=== PATIENT | female | born 1955 | race Caucasian/White ===

== ENCOUNTER → 2018-01-12 | Outpatient (CLI) | payer OTHER ==
[~2018-01-12] MED LIST: ACET-1256 PO; ALPR-411 PO; ASPI81TA28 PO; B-CO1CAP17 PO; BLACK COHOSH PO; CALC500C70 PO; CINN1CAP2 PO; CLR10 PO; CYAN100048 PO; EFF375 PO; GABA-113 PO; GABA-1218 PO; GLC/500 PO; GLIM4TAB2 PO; GLUC10007 PO; HYDROCODONE/APAP PO; HYZ/10015 PO; IRON PO; LEVO25TA PO; TNR50 PO; VENL150T33 PO
--- NOTE | 2018-01-12 16:13 | DIAGNOSTIC IMAGING REPORT ---
CHEST 2 VIEWS ROUTINE CLINICAL HISTORY: PAT preoperative evaluation COMPARISON STUDY: 01/23/2015 FINDINGS: No acute process. Lungs are clear. Prior median sternotomy and valve replacement. IMPRESSION: No acute process. The above report was generated using voice recognition software. It may contain grammatical, syntax or spelling errors. Electronically signed by: Jeremiah Reed M.D. 01/12/2018 4:12 PM Dictated Date/Time: 01/12/2018 4:12 PM
[2018-01-12 16:28] LABS: BASO % 0.6 %; BASO ABS # 0.05 K/uL (0-0.2); EOS % 1.9 %; EOS ABS # 0.17 K/uL (0-0.5); HEMOGLOBIN 14.9 g/dL (12.0-16.0); IG# 0.02 K/uL (0.00-0.02); LYMPH ABS # 4.32 K/uL (1.2-3.4); MEAN CELL VOLUME 96.1 fL (80-100); MEAN CORPUSCULAR HEMOGLOBIN 32.5 pg (25-34); MEAN CORPUSCULAR HGB CONC 33.9 g/dl (32-36); MONO % 5.7 %; NEUT % 42.6 %; NEUT ABS # 3.75 K/uL (1.4-6.5); PLATELET COUNT 207 K/uL (130-400); RED CELL DISTRIBUTION WIDTH CV 13.1 % (11.5-14.5); RED CELL DISTRIBUTION WIDTH SD 46.2 fL (36.4-46.3); WHITE BLOOD COUNT 8.81 K/uL (4.8-10.8)
[2018-01-12 16:37] LABS: ALBUMIN 3.6 gm/dl (3.4-5.0); BLOOD UREA NITROGEN 24 mg/dl (7-18); CALCIUM 9.7 mg/dl (8.5-10.1); CARBON DIOXIDE 31 mmol/L (21-32); CREATININE 1.42 mg/dl (0.60-1.20); GLUCOSE 159 mg/dl (70-99); POTASSIUM 3.9 mmol/L (3.5-5.1); SODIUM 140 mmol/L (136-145)
[2018-01-12 16:39] LABS: PTT PATIENT 25.3 SECONDS (21.0-31.0)
[2018-01-13 06:36] LABS: HEMOGLOBIN A1C 7.6 % (4.5-5.6)
--- NOTE | 2018-01-14 13:46 | History and Physical ---
History & Physical Date Jan 14, 2018. Chief Complaint Right Shoulder Pain History of Present Illness The patient is a 62 year old female with complaints of chronic right shoulder pain. She had previous rotator cuff repair sometime ago. She underwent right shoulder arthroscopic subacromial decompression and distal clavicle excision by Dr. Hogan in April. She was found to have an irreparable rotator cuff tear. She did not get good relief of her symptoms from the surgery. She has failed conservative therapy including cortisone injections and physical therapy. X-rays show evidence chronic rotator cuff tear and rotator cuff arthropathy. She would like to proceed with right reverse total shoulder arthroplasty. Surgery is scheduled for 01/30/2018 at [facility]. Review of System: Patient denies headaches, sweats, fevers, dizziness, blurred vision, double vision, cough, sore throat, chest pain, sob, n/v/d/c, urinary symptoms, suicidal thoughts, fatigue. ROS is positive for numbness and tingling in her hands and feet, as well as shoulder pain and stiffness. Past Medical/Surgical History Medical Problems: -Carpal tunnel syndrome of right wrist -DM (diabetes mellitus) -HLD (hyperlipidemia) -HTN (hypertension) -Hx of breast cancer requiring chemotherapy and radiation. Unable to have BP cuff on her right side. -Hypothyroidism -Obesity -Osteoarthritis -Anxiety -Aortic insufficiency Surgical History: -Aortic valve replacement -Shoulder arthroscopy -Hysterectomy -Cardiac cath -LASIK -Total Knee Arthroplasty x 2 -Tonsillectomy -Breast lumpectomy Family History: -non contributory Social History: -Patient drinks alcohol occasionally. She denies drug or tobacco use. She lives in a 1 story home with her and has help at home. Additional History Hepatic Disease: No Endocrine Disorder: Yes Hypertension: Yes Heart Disease: No Bleeding Tendencies: No Infectious Diseases: No Allergies Coded Allergies: Adhesives (Verified Allergy, Mild, rash with bandaids, 01/05/18) NO KNOWN DRUG ALLERGIES (Verified Allergy, Unknown, NONE, 01/05/18) Home Medications Scheduled Acetaminophen (Tylenol), 1,000 MG PO BID Alprazolam (Xanax), 1 MG PO HS Aspirin (Aspirin Ec), 81 MG PO QAM Atenolol (Atenolol), 50 MG PO QAM Calcium/Vitamin D (Os-Nicholas 500 Plus D), 1 TAB PO QAM Cinnamon (Cinnamon), 2,000 MG PO QAM Cyanocobalamin (Vitamin B-12), 2,000 MCG PO QAM Gabapentin (Neurontin), 600 MG PO QAM Gabapentin (Neurontin), 300 MG PO HS Glimepiride (Glimepiride), 1 TAB PO QAM Glucosamine Sulfate (Glucosamine), 1,000 MG PO HS Glucosamine Sulfate (Glucosamine), 2,000 MG PO QAM Hctz/Losartan (Hyzaar 25MG/100MG), 1 TAB PO QAM Levothyroxine Sodium (Synthroid), 25 MCG PO QAM Metformin Hcl (Glucophage), 500 MG PO BID Venlafaxine HCl (Venlafaxine HCl), 37.5 MG PO QAM Venlafaxine Hcl (Venlafaxine Hcl Er), 150 MG PO QAM Vitamin B Cmplx/Vitc/Folic Ac (Nephrocaps), 1 CAP PO QAM [Black Cohosh], 1 TAB PO QAM [Hydrocodone/Apap], 0.5 TAB PO PRN [Iron], 65 MG PO QAM Scheduled PRN Loratadine (Claritin), 10 MG PO HS PRN for Seasonal Allergies Physical Examination Skin: warm/dry, no rash Eyes: normal inspection, sclerae normal ENT: normal ENT inspection, pharynx normal Head: normocephalic, atraumatic Neck: supple, no adenopathy, trachea midline Respiratory/Chest: lungs clear, normal breath sounds Cardiovascular: regular rate, rhythm, + systolic murmur (2/6) Extremities: normal inspection, + pertinent finding (Right Shoulder-Decreased ROM and strength in all directions, crepitus with ROM.) Neurologic/Psych: no motor/sensory deficits, alert, oriented x 3 Addiitonal Comments: MRI of the right shoulder demonstrates full thickness supraspinatus tear with retraction and muscle atrophy, severe glenohumeral and acromioclavicular osteoarthritis. X-rays of right shoulder demonstrate humeral head elevation, anterior subluxation of humeral head, and arthritic changes to glenohumeral joint. Last Resulted CBC 01/12/18 15:05 Red Blood Count 4.58, Mean Corpuscular Volume 96.1, Mean Corpuscular Hemoglobin 32.5, Mean Corpuscular Hemoglobin Concent 33.9, Mean Platelet Volume 11.0, Neutrophils (%) (Auto) 42.6, Lymphocytes (%) (Auto) 49.0, Monocytes (%) (Auto) 5.7, Eosinophils (%) (Auto) 1.9, Basophils (%) (Auto) 0.6, Neutrophils # (Auto) 3.75, Lymphocytes # (Auto) 4.32, Monocytes # (Auto) 0.50, Eosinophils # (Auto) 0.17, Basophils # (Auto) 0.05 Last Resulted BMP 01/12/18 14:47 Diagnosis Right Shoulder rotator cuff arthropathy and osteoarthritis Plan of Treatment Patient has chronic right shoulder pain and has an irreparable rotator cuff tear. She has failed conservative treatment including cortisone injections and would like to proceed with surgical intervention. Plan will be for right shoulder reverse total shoulder arthroplasty. Risks, benefits, and alternatives to surgery including but not limited to DVT, infection, pain, stiffness, failure to relieve all symptoms, need for revision surgery, damage to blood vessels, damage to nerves, PE, , risks of anesthesia were discussed and patient verbalized understanding. All questions were answered and patient wishes to proceed with surgery. She is scheduled for surgery on 01/30/18 at [facility]. She plans to go home upon discharge and do outpatient PT. She will f/u in the office post operatively.
== END | disposition home or self-care (01) ==
LOC: C.CPL 14:23
PROVIDERS: ATTEND Orthopaedic Surgery
DX: Z01.811 Encounter for preprocedural respiratory examination (principal); Z01.812 Encounter for preprocedural laboratory examination

== ENCOUNTER 2018-01-30 08:15 | Inpatient (IN) | payer OTHER ==
[2018-01-05 08:42] VITALS: BMI 41.0
[2018-01-12 14:58] VITALS: BMI 42.0
--- NOTE | 2018-01-12 15:51 | PAT Medication Instructions ---
Service Date Jan 12, 2018. Current Home Medication List Acetaminophen (Tylenol), 1,000 MG PO BID Alprazolam (Xanax), 1 MG PO HS Aspirin (Aspirin Ec), 81 MG PO QAM Atenolol (Atenolol), 50 MG PO QAM Calcium/Vitamin D (Os-Nicholas 500 Plus D), 1 TAB PO QAM Cinnamon (Cinnamon), 2,000 MG PO QAM Cyanocobalamin (Vitamin B-12), 2,000 MCG PO QAM Gabapentin (Neurontin), 600 MG PO QAM Gabapentin (Neurontin), 300 MG PO HS Glimepiride (Glimepiride), 1 TAB PO QAM Glucosamine Sulfate (Glucosamine), 1,000 MG PO HS Glucosamine Sulfate (Glucosamine), 2,000 MG PO QAM Hctz/Losartan (Hyzaar 25MG/100MG), 1 TAB PO QAM Levothyroxine Sodium (Synthroid), 25 MCG PO QAM Loratadine (Claritin), 10 MG PO HS PRN for Seasonal Allergies Metformin Hcl (Glucophage), 500 MG PO BID Venlafaxine HCl (Venlafaxine HCl), 37.5 MG PO QAM Venlafaxine Hcl (Venlafaxine Hcl Er), 150 MG PO QAM Vitamin B Cmplx/Vitc/Folic Ac (Nephrocaps), 1 CAP PO QAM [Black Cohosh], 1 TAB PO QAM [Hydrocodone/Apap], 0.5 TAB PO PRN [Iron], 65 MG PO QAM Medication Instructions For Your Scheduled Surgery - Hold the following medications 2 weeks prior to surgery: Cinnamon (Cinnamon), 2,000 MG PO QAM Glucosamine Sulfate (Glucosamine), 1,000 MG PO HS Glucosamine Sulfate (Glucosamine), 2,000 MG PO QAM [Black Cohosh], 1 TAB PO QAM - Hold the following medications the morning of surgery: Calcium/Vitamin D (Os-Nicholas 500 Plus D), 1 TAB PO QAM Cyanocobalamin (Vitamin B-12), 2,000 MCG PO QAM Glimepiride (Glimepiride), 1 TAB PO QAM Hctz/Losartan (Hyzaar 25MG/100MG), 1 TAB PO QAM Loratadine (Claritin), 10 MG PO HS PRN for Seasonal Allergies Metformin Hcl (Glucophage), 500 MG PO BID Vitamin B Cmplx/Vitc/Folic Ac (Nephrocaps), 1 CAP PO QAM [Iron], 65 MG PO QAM - Take the following medications the morning of surgery with a sip of water: Acetaminophen (Tylenol), 1,000 MG PO BID (if needed, may be taken up to four hours before surgery) Aspirin (Aspirin Ec), 81 MG PO QAM Atenolol (Atenolol), 50 MG PO QAM Gabapentin (Neurontin), 600 MG PO QAM Levothyroxine Sodium (Synthroid), 25 MCG PO QAM Venlafaxine HCl (Venlafaxine HCl), 37.5 MG PO QAM Venlafaxine Hcl (Venlafaxine Hcl Er), 150 MG PO QAM [Hydrocodone/Apap], 0.5 TAB PO PRN (if needed, may be taken up to four hours before surgery) - Take the following medications as scheduled the night before surgery: Acetaminophen (Tylenol), 1,000 MG PO BID Alprazolam (Xanax), 1 MG PO HS Gabapentin (Neurontin), 300 MG PO HS Loratadine (Claritin), 10 MG PO HS PRN for Seasonal Allergies (if needed) [Hydrocodone/Apap], 0.5 TAB PO PRN (if needed) If you have any questions please call us at [phone] or [phone] or [phone]
[~2018-01-30] VITALS: Ht 172.7 cm; Wt 125.6 kg
[2018-01-30] VITALS (8 sets, daily range): BP systolic 97–142; BP diastolic 55–78; PULSE 60–96; TEMP 36.3–37; O2SAT 92–96; Ht 172.7 cm; Wt 125.6 kg
[~2018-01-30 08:15] MED LIST changes: +ACETAMINOPHEN 500 MG TAB PO SCH; -B-CO1CAP17 PO; +B-COCAP2 PO; +CEFAZOLIN 3000MG IV PUSH 22.5 ML IV SCH; +CeleBREX 200 MG CAP PO SCH; +DEXAMETHASONE 4 MG TAB PO SCH; +FAMOTIDINE 20 MG TAB PO SCH; +GABAPENTIN 600 MG PO SCH; +LACTATED RINGER'S 1000ML 1,000 ML IV SCH; +METOCLOPRAMIDE HCL 10 MG TAB PO SCH; +ROPIVACAINE 5MG/ML 30 ML 150 MG, BUPIVACAINE 0.5% MPF INJ 30 ML, EpINEphrine HCL INJ 0.... INFIL SCH
[2018-01-30] MEDS ORDERED: ONDANSETRON INJ 2 MG/ML 2 ML VIAL ONE (08:59)
[2018-01-30] MEDS ORDERED: FENTANYL CITRATE INJ 50 MCG/1 ML 2 ML VIAL ONE (08:59)
[2018-01-30] MEDS ORDERED: DEXAMETHASONE SOD INJ 4 MG/ML VIAL ONE (08:59)
[2018-01-30] MEDS ORDERED: PROPOFOL IV EMULSION 10 MG/ML 20 ML VIAL ONE (08:59)
[2018-01-30] MEDS ORDERED: MIDAZOLAM HCL 1 MG/ML 2ML VIAL ONE (08:59)
[2018-01-30] MEDS ORDERED: LIDOCAINE HCL 2% 2 ML VIAL (20MG/ML) ONE (08:59)
[2018-01-30] MEDS ORDERED: ROCURONIUM BROMIDE 10 MG/ML 5 ML VIAL ONE (08:59)
--- NOTE | 2018-01-30 09:41 | History & Physical Bridge Note ---
H&P Re-Evaluation Bridge Note: I have examined the patient, reviewed the History & Physical and in the interval since the performance of the History & Physical I have noted the following changes of clinical significance: No changes noted
[2018-01-30] MEDS ORDERED: ROPIVACAINE 0.5% 5 MG/ML 30 ML VIAL ONE (09:48)
[2018-01-30] MEDS ORDERED: POVIDONE-IODINE OP SOLN 30 ML BTL ONE (10:24)
[2018-01-30] MEDS ORDERED: BACITRACIN 50000 UNIT VIAL ONE (10:24)
[2018-01-30] MEDS ORDERED: ORTHO JOINT ANESTHETIC ONE (10:24)
[2018-01-30] MEDS ORDERED: VANCOMYCIN HCL 1000MG/20ML VIAL ONE (10:24)
[2018-01-30] MEDS ORDERED: EpHEDrine SULFATE INJ 50 MG/ML AMP IV PRN (10:45)
[2018-01-30] MEDS ORDERED: HYDROmorphone INJ 1 MG/ML SYR IV PRN (10:45)
[2018-01-30] MEDS ORDERED: FENTANYL CITRATE INJ 50 MCG/1 ML 2 ML VIAL IV PRN (10:45)
[2018-01-30] MEDS ORDERED: ATROPINE SULFATE 0.1 MG/ML 5ML SYR IV PRN (10:45)
[2018-01-30] MEDS ORDERED: ONDANSETRON INJ 2 MG/ML 2 ML VIAL IV PRN ×2 (10:45→13:30)
[2018-01-30] MEDS ORDERED: PHENYLEPHRINE 100MCG/ML 5ML SYR ONE (11:41)
[2018-01-30] MEDS ORDERED: EpHEDrine SULFATE 50MG/5ML SYR ONE (11:41)
[2018-01-30] MEDS ORDERED: EpHEDrine SULFATE INJ 50 MG/ML AMP ONE (11:41)
--- NOTE | 2018-01-30 12:50 | [facility] Operative Report ---
Operative Report Operative Date Jan 30, 2018. Pre-Operative Diagnosis Right shoulder rotator cuff arthropathy and osteoarthritis Post-Operative Diagnosis Same plus tear long head biceps tendon Procedure(s) Performed Right Reverse Total Shoulder Arthroplasty, Right Biceps Tenodesis Surgeon Dr. Lyle Flores Sr Account Executive Surgeon(s) Abel Suazo PA-C Estimated Blood Loss 50mL Findings as above Specimens A. Right humeral head Drains 1 hemovac Anesthesia Type General Regional Complication(s) none Disposition Recovery Room / PACU Indications Patient is a 62-year-old female long-standing right shoulder. She is failed conservative measures including injection anti-inflammatories and physical therapy. At the time of arthroscopy with another of my partners she was found to have a irreparable rotator cuff tear. This was debrided she continued to have pain disability arthritic change in shoulder. She presents for a right reverse total shoulder arthroplasty. Description of Procedure Risks, benefits and alternatives to surgery including, but not limited to, infection DVT, pain, stiffness, need for revision surgery, failure to relieve all symptoms, damage to blood vessels, damage to nerves, risk of anesthesia were discussed with the patient and they wished to proceed. The patient was identified. Laterality was confirmed and marked. The patient received a preoperative antibiotic as well as an interscalene block. They were transferred to the operating room and placed in the supine position and induced into general endotracheal anesthesia per the anesthesia staff. The patient was then safely transferred to a slight beachchair position. The patient was secured in the Tenet positioner. All pressure points were well padded. The shoulder was prepped and draped in the usual sterile manner with ChloraPrep. The arm was secured in the Spider starr. I made a longitudinal incision just lateral to the coracoid, sharply incising through the skin and utilizing Bovie electrocautery to achieve hemostasis. I identified the cephalic vein and mobilized it laterally with the deltoid. I mobilize the pectoralis and mobilize this medially releasing a small portion of the upper border of the pec tendon to improve visualization. I then identified and mobilized the conjoined tendon. I identified the long head of the biceps tendon. The long head of the biceps tendon had significant tendinosis and tearing proximally. I performed an in situ biceps tenodesis with interrupted #2 FiberWire suture. I then released the subscapularis. I pinned into place my humeral head version cutting guide and made my humeral head resection. I then sequentially reamed and sequentially broached. I then placed the trial humeral stem into the shoulder. I placed retractors around the glenoid and then excised the residual biceps tendon stump and glenoid labrum. I elevated the soft tissues and the inferior aspect of the glenoid to improve exposure and released tissues circumferentially. I then positioned and drilled for the central post for the glenoid plate. The glenoid plate was bone grafted with bone taken from the humeral head. I impacted the definitive glenoid plate into position and then placed a total of 4 compression screws that were then locked into position with locking caps. I then placed the glenosphere onto the plate and secured it with a locking screw. I then removed the trial humeral stem and placed the definitive humeral stem. I trialed off of the definitive stem. The definitive components used were [employer] Equinox: Preserve short humeral press-fit stem: 6 Standard glenoid plate Glenosphere: 38 Humeral tray:+ 0 Humeral polyethylene liner: + 0 I thoroughly irrigated the wound. Deep tissues were anesthetized with an orthomix solution. I then locked my definitive humeral tray into position with a torque limiting screw. I then impacted the definitive humeral polyethylene liner into position. I then reduced the shoulder. There was good range of motion and good stability after the reduction. The wound was again thoroughly irrigated and a Betadine soak was performed. A deep drain was placed. The deltopectoral interval was closed with interrupted #1 Ethibond suture. The subcutaneous tissue was closed with interrupted 2-0 Vicryl suture. The skin was closed with sahra. A sterile dressing was applied. A sling was placed. All needle and sponge counts were correct at the end of the procedure. The patient was transferred to the PACU in stable condition without apparent complication. The PA-C was necessary for assistance with procedure for assistance in positioning, prepping, draping, retraction and closure. I attest to the content of the Intraoperative Record and any orders documented therein. Any exceptions are noted below.
[2018-01-30] MEDS ORDERED: GLYCOPYRROLATE INJ 0.2 MG/ML VIAL ONE (12:57)
[2018-01-30] MEDS ORDERED: NEOSTIGMINE METHYLSULFATE 5 MG/5 ML SYR ONE (12:57)
[2018-01-30] MEDS ORDERED: MoRPHine SULFATE 2 MG/ML CARP IV PRN (13:30)
[2018-01-30] MEDS ORDERED: LORATADINE 10 MG TAB PO PRN (13:30)
[2018-01-30] MEDS ORDERED: CEFAZOLIN IV 2,000 MG in DEXTROSE 5% 50ML 50 ML IV SCH (13:30)
[2018-01-30] MEDS ORDERED: BISACODYL 10 MG SUPP PR PRN (13:30)
[2018-01-30] MEDS ORDERED: MAGNESIUM HYDROXIDE SUSP 30 ML UDC PO PRN (13:30)
--- NOTE | 2018-01-30 14:03 | DIAGNOSTIC IMAGING REPORT ---
R SHOULDER MIN 2 VIEWS ROUTINE CLINICAL HISTORY: 62 years-old Female presenting with Post shoulder surgery. TECHNIQUE: Frontal and transscapular Y views of the right shoulder were obtained. COMPARISON: Chest x-ray from 01/12/2018. FINDINGS: There has been interval reverse right total shoulder arthroplasty. No malalignment. No radiographic evidence of periprosthetic fracture. Expected soft tissue emphysema and overlying skin sahra. Widening of the acromioclavicular joint is new from prior, possibly postsurgical. Visualized portion of the right hemithorax demonstrates low lung volumes on the right. IMPRESSION: 1. Widening of the right AC joint. Correlate clinically for expected postsurgical appearance. 2. Otherwise expected postsurgical appearance status post reverse right total shoulder arthroplasty. Electronically signed by: Lyle Nevarez M.D. 01/30/2018 2:01 PM Dictated Date/Time: 01/30/2018 2:00 PM
[2018-01-30] MEDS ORDERED: PHARMACY GLYCEMIC MGMT CONSULT PRN (14:06)
--- NOTE | 2018-01-30 14:28 | Pharmacy Progress Note ---
Pharmacy Glycemic Short Note 2 Date of Service Jan 30, 2018. OUTPATIENT ANTIDIABETIC REGIMEN: * Glimepiride 4mg PO qAM * Metformin 500mg PO BID * HbA1c: 7.6% (01/12/18) ASSESSMENT: * Ms Rondon is a 62yo diabetic female POD 0 s/p R TSA. * Patient received Dexamethasone in the OR this morning (8mg PO plus ortho injection, ?plus 4mg iv), which is expected to cause significant steroid- induced hyperglycemia. * Patient initiated on SQ basal/bolus insulin upon admission to the floor post- op. PLAN FOR INPATIENT GLYCEMIC CONTROL: * Hold outpatient oral diabetes medications * will resume when diet is tolerated post-op, if renal function stable * Basal insulin * Lantus 40 units SQ x1 dose immediately on arrival to med/surg * Lantus per sliding scale at HS * Bolus insulin * NovoLog per scale ACHS or Q6hrs while NPO plus [id number] * Goal Range: Low 110 mg/dL - High 140 mg/dL * Correction Factor: 15 mg/dL/unit * Nutritional / Prandial insulin per carb ratio of 1 unit per 5 grams CHO consumed PLAN FOR DISCHARGE: * A1c (7.6%) indicates that outpatient regimen is reasonable. * Expect that patient may resume home meds on discharge.
[2018-01-30] MEDS ORDERED: LANTUS PER UNIT CHARGE SQ ONE ×3 (14:30→22:00)
[2018-01-30] MEDS ORDERED: VENL-271 PO (14:45)
[2018-01-30] MEDS: ACETAMINOPHEN 500 MG TAB PO SCH ×2 (14:48→22:01)
--- NOTE | 2018-01-30 14:48 | Anesthesiology Progress Note ---
Anesthesia Post Op Note Date & Time Jan 30, 2018 at 14:48 Vital Signs Pain Intensity: 0 Vital Signs Past 12 Hours Date Time Temp Pulse Resp B/P (MAP) Pulse Ox O2 Delivery O2 Flow Rate FiO2 01/30/18 14:10 36.4 72 17 121/91 94 Nasal Cannula 2 01/30/18 14:00 78 19 128/67 94 Nasal Cannula 2 01/30/18 13:50 82 19 174/82 93 Nasal Cannula 2 01/30/18 13:40 77 24 134/58 93 Oxymask 10 01/30/18 13:30 73 16 144/87 95 Oxymask 10 01/30/18 13:20 36.3 89 16 175/97 95 Oxymask 10 01/30/18 09:01 36.9 60 16 142/71 93 Room Air Notes Mental Status: alert / awake / arousable, participated in evaluation Pt Amnestic to Procedure: Yes Nausea / Vomiting: adequately controlled Pain: adequately controlled Airway Patency, RR, SpO2: stable & adequate BP & HR: stable & adequate Hydration State: stable & adequate Anesthetic Complications: no major complications apparent
[2018-01-30] MEDS: INSULIN ASPART 100 UNITS/ML 3 ML PEN SC SCH ×4 (14:50→23:46)
--- NOTE | 2018-01-30 15:28 | Medical Consult ---
Consultation Date of Consultation: Jan 30, 2018. Attending Physician: Lyle Flores M.D. Reason for Consultation: medical management History of Present Illness Ms. Rondon is s/p right TSA. She is feeling well and has no complaints. Pmhx of type 2 dm, aortic bicuspid valve stenosis with valve replacement 2010, htn, hypertensive urgency, hypothyroid ROS Constitutional: no chills, aches, sweats or fever Respiratory: no sob,cough, sputum, or wheezing Cardiac: no chest pain, palpitations, edema, orthopnea or lightheadedness GI: no abdominal pain, nausea, vomiting, diarrhea or constipation : no dysuria or hesitancy Extremities: no joint pain or weakness Skin: no rash All other systems reviewed and negative Family History Family history was reviewed; no changes noted. 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) Allergies Coded Allergies: Adhesives (Verified Allergy, Mild, rash with bandaids, 01/30/18) NO KNOWN DRUG ALLERGIES (Verified Allergy, Unknown, NONE, 01/30/18) Home Medications Active Reported Venlafaxine Hcl Er (Venlafaxine Hcl) 37.5 Mg Tab 1 Tab PO QAM [Hydrocodone/Apap] 0.5 Tab PO PRN Tylenol (Acetaminophen) 500 Mg Tab 1,000 Mg PO BID [Iron] 65 Mg PO QAM Nephrocaps (Vitamin B Complex/Vit C/Folic Acid) Cap 1 Cap PO QAM [Black Cohosh] 1 Tab PO QAM Glimepiride 4 Mg Tab 1 Tab PO QAM 90 Days Neurontin (Gabapentin) 300 Mg Cap 300 Mg PO HS Glucophage (Metformin Hcl) 500 Mg Tab 500 Mg PO BID Claritin (Loratadine) 10 Mg Tab 10 Mg PO HS PRN Os-Nicholas 500 Plus D (Calcium/Vitamin D) Tab 1 Tab PO QAM Cinnamon 500 Mg Cap 2,000 Mg PO QAM Hyzaar 25MG/100MG (HCTZ/Losartan Potassium) 1 Ea Tab 1 Tab PO QAM Glucosamine (Glucosamine Sulfate) 1,000 Mg Tab 2,000 Mg PO QAM Atenolol 50 Mg Tab 50 Mg PO QAM Vitamin B-12 (Cyanocobalamin) 1,000 Mcg Sub 2,000 Mcg PO QAM Neurontin (Gabapentin) 300 Mg Cap 600 Mg PO QAM Glucosamine (Glucosamine Sulfate) 1,000 Mg Tab 1,000 Mg PO HS Aspirin Ec (Aspirin) 81 Mg Tab 81 Mg PO QAM Xanax (Alprazolam) 0.5 Mg Tab 1 Mg PO HS Synthroid (Levothyroxine Sodium) 25 Mcg Tab 25 Mcg PO QAM Venlafaxine Hcl Er (Venlafaxine Hcl) 150 Mg Tab 150 Mg PO QAM Current Inpatient Medications Current Inpatient Medications Medications (Trade) Dose Ordered Sig/Dora Route Start Time Stop Time Status Last Admin Dose Admin Cefazolin Sodium 22.5 ml @ 4.5 mls/min PREOP IV 01/30/18 06:00 01/30/18 18:00 01/30/18 10:54 4.5 MLS/MIN Acetaminophen (Tylenol Tab) 1,000 mg PREOP PO 01/30/18 06:00 01/30/18 18:00 Celecoxib (CeleBREX CAP) 200 mg PREOP PO 01/30/18 06:00 01/30/18 18:00 01/30/18 09:10 200 MG Dexamethasone (Decadron Tab) 8 mg PREOP PO 01/30/18 06:00 01/30/18 18:00 01/30/18 09:09 8 MG Famotidine (Pepcid Tab) 20 mg PREOP PO 01/30/18 06:00 01/30/18 18:00 01/30/18 09:09 20 MG Gabapentin (Neurontin Cap) 600 mg PREOP PO 01/30/18 06:00 01/30/18 18:00 Metoclopramide HCl (Reglan Tab) 10 mg PREOP PO 01/30/18 06:00 01/30/18 18:00 01/30/18 09:09 10 MG Lactated Ringer's 1,000 ml @ 15 mls/hr Q24H IV 01/30/18 06:00 01/31/18 05:59 01/30/18 09:11 15 MLS/HR Fentanyl Citrate (Fentanyl Inj) 25 mcg Q5M PRN IV 01/30/18 10:45 01/30/18 15:45 Hydromorphone HCl (Dilaudid Inj) 0.5 mg Q5M PRN IV 01/30/18 10:45 01/30/18 15:45 Ondansetron HCl (Zofran Inj) 4 mg ONE PRN IV 01/30/18 10:45 01/30/18 15:45 Ephedrine Sulfate (EpHEDrine SULFATE INJ) 5 mg Q5M PRN IV 01/30/18 10:45 01/30/18 15:45 Atropine Sulfate (Atropine Sulfate 0.1mg/ml Inj) 0.5 mg Q1M PRN IV 01/30/18 10:45 01/30/18 15:45 Alprazolam (Xanax Tab) 1 mg HS PO 01/30/18 21:00 03/01/18 20:59 Atenolol (Tenormin Tab) 50 mg QAM PO 01/31/18 09:00 03/02/18 08:59 Gabapentin (Neurontin Cap) 300 mg HS PO 01/30/18 21:00 03/01/18 20:59 Gabapentin (Neurontin Tab) 600 mg QAM PO 01/31/18 09:00 03/02/18 08:59 Levothyroxine Sodium (Synthroid Tab) 25 mcg DAILYBB PO 01/31/18 06:00 03/02/18 05:59 Loratadine (Claritin Tab) 10 mg HS PRN PO 01/30/18 13:30 03/01/18 13:29 Venlafaxine HCl (effeXOR EXTENDED REL CAP) 37.5 mg QAM PO 01/31/18 09:00 03/02/18 08:59 Venlafaxine HCl (effeXOR EXTENDED REL CAP) 150 mg QAM PO 01/31/18 09:00 03/02/18 08:59 Ondansetron HCl (Zofran Inj) 4 mg Q6H PRN IV 01/30/18 13:30 03/01/18 13:29 Potassium Chloride 10 meq/ Sodium Chloride 1,005 ml @ 100 mls/hr Q10H3M IV 01/30/18 15:00 03/01/18 14:59 Oxycodone HCl (Roxicodone Immediate Rel Tab) `1-2 TABS FOR PAIN `1 TAB... Q4H PRN PO 01/30/18 13:30 02/13/18 13:29 Acetaminophen (Tylenol Tab) 1,000 mg Q8 PO 01/30/18 14:00 03/01/18 13:59 01/30/18 14:48 1,000 MG Morphine Sulfate (MoRPHine SULFATE INJ) 2 mg Q4H PRN IV 01/30/18 13:30 02/13/18 13:29 Magnesium Hydroxide (Milk Of Magnesia Susp) 30 ml Q6H PRN PO 01/30/18 13:30 03/01/18 13:29 Bisacodyl (Dulcolax Supp) 10 mg DAILY PRN AR 01/30/18 13:30 03/01/18 13:29 Docusate Sodium (coLACE CAP) 100 mg BID PO 01/30/18 21:00 03/01/18 20:59 Multivitamins (Multivitamin Tab) 1 tab DAILY PO 01/31/18 09:00 03/02/18 08:59 Ferrous Gluconate (Ferrous Gluconate Tab) 324 mg TIDM PO 01/30/18 17:45 03/01/18 17:59 Miscellaneous Information (Consult Glycemic Management Pharmacy) 1 ea UD PRN N/A 01/30/18 14:06 03/01/18 14:05 Insulin Glargine (Lantus Per Unit) see protocol text TODAY@2100 ONCE SQ 01/30/18 21:00 01/30/18 21:01 Insulin Aspart (novoLOG ASPART) SLIDING SCALE G... ACHS LA 01/30/18 14:30 03/01/18 14:29 01/30/18 14:50 6 UNITS Insulin Aspart (novoLOG ASPART) SLIDING SCALE G... TODAY@0000,0400 LA 01/31/18 00:00 01/31/18 04:01 Cefazolin Sodium 2000 mg/Syringe 15 ml @ 3.75 mls/ min Q8H IV 01/30/18 18:00 01/31/18 02:03 Aspirin (Ecotrin Tab) 81 mg QAM PO 01/31/18 09:00 03/02/18 08:59 Physical Exam Date Time Temp Pulse Resp B/P (MAP) Pulse Ox O2 Delivery O2 Flow Rate FiO2 01/30/18 14:55 36.4 67 18 109/71 (84) 92 Nasal Cannula 2.0 01/30/18 14:10 36.4 72 17 121/91 94 Nasal Cannula 2 01/30/18 14:00 78 19 128/67 94 Nasal Cannula 2 01/30/18 13:50 82 19 174/82 93 Nasal Cannula 2 01/30/18 13:40 77 24 134/58 93 Oxymask 10 01/30/18 13:30 73 16 144/87 95 Oxymask 10 01/30/18 13:20 36.3 89 16 175/97 95 Oxymask 10 01/30/18 09:01 36.9 60 16 142/71 93 Room Air General: no distress Eyes: normal inspection, PERLL Respiratory: chest non tender, clear to auscultation, normal breath sounds, no respiratory distress, no accessory muscle use Cardiac: regular rate and rhythm, no rub or gallop, systolic murmur 3/6 LUSB, no edema, no jvd GI/: active bowel sounds, no abd pain or tenderness, soft, non distended Extremities: normal range of motion, normal strength, non tender Neuro/Psych: alert and oriented x 3, normal mood and affect Skin: normal color, dry Laboratory Results Last 24 Hours Test 01/30/18 09:03 01/30/18 13:58 01/30/18 14:48 Bedside Glucose 150 mg/dl 212 mg/dl 228 mg/dl Assessment & Plan Ms. 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 Discussed with Chaya Ladd NP and agree with findings and plan as documented in the note. Any exceptions or clarifications are listed here: None Patient is doing well postoperatively but her nerve block has not worn off yet she is no chest pain or shortness of breath otherwise. She has been appropriately had a glycemic pharmacy consult done in her ARB/HCT is been held we will continue to watch her blood pressure and follow her in the postoperative state Documented By: Vahid Landon
[2018-01-30] MEDS ORDERED: HydrALAZINE HCL 20 MG/ML VIAL IV. PRN (15:30)
[2018-01-30] MEDS: POTASSIUM CHLORIDE INJ 10 MEQ in SODIUM CHLORIDE 0.9% 1000ML 1,000 ML IV SCH (15:48)
[2018-01-30] MEDS: FERROUS GLUCONATE 324 MG TAB PO SCH (16:44)
[2018-01-30] MEDS ORDERED: COUGH DROP (SUGAR FREE) LOZ 24 LOZ/1 BOX LOZ ONE (17:57)
[2018-01-30] MEDS: CEFAZOLIN IV 2,000 MG in SYRINGE 0 ML IV SCH (18:00)
[2018-01-30] MEDS: DOCUSATE SODIUM 100 MG CAP PO SCH (20:58)
[2018-01-30] MEDS ORDERED: GABAPENTIN 300 MG CAP PO SCH (21:00)
[2018-01-30] MEDS ORDERED: ALPRAZOLAM 0.5 MG TAB PO SCH (21:00)
[2018-01-30] MEDS: OXYCODONE HCL IR 5 MG TAB (IMMEDIATE RELEASE) PO PRN (23:00)
[2018-01-31] MEDS: CEFAZOLIN IV 2,000 MG in SYRINGE 0 ML IV SCH (02:14)
[2018-01-31] MEDS: POTASSIUM CHLORIDE INJ 10 MEQ in SODIUM CHLORIDE 0.9% 1000ML 1,000 ML IV SCH (02:15)
[2018-01-31 03:15] VITALS: BP 88/54; PULSE 84; TEMP 37; O2SAT 92
[2018-01-31 03:30] VITALS: BP 99/66; PULSE 80
[2018-01-31] MEDS: INSULIN ASPART 100 UNITS/ML 3 ML PEN SC SCH ×3 (04:28→12:41)
[2018-01-31] MEDS: OXYCODONE HCL IR 5 MG TAB (IMMEDIATE RELEASE) PO PRN ×2 (05:09→10:57)
[2018-01-31] MEDS: ACETAMINOPHEN 500 MG TAB PO SCH (05:10)
[2018-01-31] MEDS ORDERED: LEVOTHYROXINE 25 MCG TAB PO SCH (06:00)
[2018-01-31 06:09] LABS: HEMATOCRIT 36.3 % (37-47); HEMOGLOBIN 12.1 g/dL (12.0-16.0); MEAN CELL VOLUME 95.3 fL (80-100); MEAN CORPUSCULAR HEMOGLOBIN 31.8 pg (25-34); MEAN CORPUSCULAR HGB CONC 33.3 g/dl (32-36); MEAN PLATELET VOLUME 10.5 fL (7.4-10.4); PLATELET COUNT 175 K/uL (130-400); RED CELL DISTRIBUTION WIDTH CV 12.8 % (11.5-14.5); RED CELL DISTRIBUTION WIDTH SD 44.5 fL (36.4-46.3); WHITE BLOOD COUNT 13.25 K/uL (4.8-10.8)
[2018-01-31 06:39] LABS: CREATININE 1.54 mg/dl (0.60-1.20); POTASSIUM 4.4 mmol/L (3.5-5.1)
[2018-01-31 08:15] VITALS: BP 116/72; PULSE 72; TEMP 36.5; O2SAT 93
--- NOTE | 2018-01-31 08:24 | Orthopedic Progress Note ---
Orthopedic Progress Note Date of Service Jan 31, 2018. Subjective Post OP Day: 1 Reports: feeling well, Denies: chest pain, SOB, nausea / vomiting, light headedness, calf pain Objective calves soft nontender, N/V intact, capillary refill less than 2 sec., dressing C /D/I, A&O x3, toes mobile, hemovac drainage (150/50 CC PER SHIFT) Date Time Temp Pulse Resp B/P (MAP) Pulse Ox O2 Delivery O2 Flow Rate FiO2 01/31/18 08:15 36.5 72 20 116/72 (87) 93 Room Air 01/31/18 03:30 80 99/66 (77) 01/31/18 03:15 37.0 84 16 88/54 (65) 92 Room Air 01/30/18 23:25 Room Air 01/30/18 22:57 37.0 96 18 105/55 (72) 92 Room Air 01/30/18 19:11 36.7 68 18 111/64 (80) 92 Room Air 01/30/18 17:50 36.7 73 18 139/78 (98) 94 Room Air 01/30/18 16:24 36.6 87 18 114/72 (86) 95 Room Air 01/30/18 15:26 36.3 61 18 97/66 (76) 96 Nasal Cannula 2.0 01/30/18 14:55 36.4 67 18 109/71 (84) 92 Nasal Cannula 2.0 01/30/18 14:25 36.6 77 16 122/76 (91) 95 Nasal Cannula 2.0 01/30/18 14:25 95 Nasal Cannula 2.0 01/30/18 14:25 95 Nasal Cannula 2.0 01/30/18 14:10 36.4 72 17 121/91 94 Nasal Cannula 2 01/30/18 14:00 78 19 128/67 94 Nasal Cannula 2 01/30/18 13:50 82 19 174/82 93 Nasal Cannula 2 01/30/18 13:40 77 24 134/58 93 Oxymask 10 01/30/18 13:30 73 16 144/87 95 Oxymask 10 01/30/18 13:20 36.3 89 16 175/97 95 Oxymask 10 01/30/18 09:01 36.9 60 16 142/71 93 Room Air Laboratory Results 24 Hours: Test 01/31/18 05:37 Hematocrit 36.3 % Hemoglobin 12.1 g/dL Assessment & Plan Assessment: POD#1 SP RIGHT REVERSE TSA Plan: PT/OT DVT PROPH- ASA ONCE DAILY PAIN MANAGEMENT DC PLANNING- POSSIBLE DC HOME LATER TODAY IF PAIN CONTROLLED. OK TO DC DRAIN PRIOR TO DC.
[2018-01-31] MEDS ORDERED: ACET-1256 PO (08:27)
[2018-01-31] MEDS ORDERED: RXC5 PO (08:27)
[2018-01-31] MEDS ORDERED: ONDA-170 PO (08:27)
--- NOTE | 2018-01-31 08:28 | Discharge Instructions ---
Discharge Instructions Date of Service Jan 31, 2018. Admission Reason for Admission: Right Shoulder Osteoarthritis Discharge Discharge Diagnosis / Problem: SP RIGHT REVERSE TSA Discharge Goals Goal(s): Decrease discomfort, Improve function, Increase independence Activity Recommendations Activity Limitations: per Instructions/Follow-up section . Instructions / Follow-Up Instructions / Follow-Up ACTIVITY RECOMMENDATIONS: SELF CARE INSTRUCTIONS AFTER TOTAL SHOULDER ARTHROPLASTY REVERSE A. You may do daily exercises as taught in physical therapy while in hospital. No lifting with the operative arm. B. You are to wear your sling/immobilizer at all times EXCEPT when performing your daily exercises and for hygiene purposes. C. You may perform dry, daily dressing changes. Please keep your incision covered. You may shower 48 hours after surgery. Do not apply soap or any ointment/ lotions directly over incision. Do not soak incision in bath tub/swimming pool.REMOVE SURGICAL DRESSING Friday02/01/18. D. You may use ice as needed to operative shoulder. SPECIAL CARE INSTRUCTIONS: VERY IMPORTANT TO READ AND REVIEW A. There are a few signs you need to watch for after you are home. Call [facility] at [phone] if you experience any of the followin. Increased severe shoulder pain. Some pain is expected especially when you exercise. 2. Increased swelling in you shoulder or arm; pain or swelling in either upper extremity. 3. Any fluid drainage from the incision. 4. Shortness of breath or chest pain. B. Please call [facility] at [phone] if you have any questions or concerns about your operation or recovery. C. Call your physician if: 1. Temperature is greater than 101 degrees (F). 2. Pain is not relieved by prescribed pain medications. 3. Increase drainage or redness from incision. 4. Unanswered questions or concerns. FOLLOW UP VISIT: Please call [facility] at [phone] to schedule a follow up appointment with Dr. SALVADOR or his PA in 12-14 days from your surgery date. Current Hospital Diet Patient's current hospital diet: Diabetes Type 2 Diet Discharge Diet Recommended Diet: Regular Diet Procedures Procedures Performed: Right Reverse Total Shoulder Arthroplasty, Right Biceps Tenodesis Pending Studies Studies pending at discharge: no Laboratory Results Hemoglobin A1c Test 01/12/18 15:05 Range/Units Estimated Average Glucose 171 mg/dl Hemoglobin A1c 7.6 H 4.5-5.6 % Medical Emergencies . Who to Call and When: Medical Emergencies: If at any time you feel your situation is an emergency, please call 911 immediately. . Non-Emergent Contact Non-Emergency issues call your: Primary Care Provider . "Provider Documentation" section prepared by Nichole Mendez. . [place] Drug Monitoring Program Search Results: patient reviewed within database, no issues identified
[2018-01-31] MEDS ORDERED: LANTUS PER UNIT CHARGE SQ ONE (08:30)
[2018-01-31] MEDS: FERROUS GLUCONATE 324 MG TAB PO SCH ×2 (08:50→12:40)
[2018-01-31] MEDS: DOCUSATE SODIUM 100 MG CAP PO SCH (08:50)
[2018-01-31] MEDS ORDERED: MULTIVITAMIN TAB PO SCH (09:00)
[2018-01-31] MEDS ORDERED: VENLAFAXINE HCL XR 37.5 MG CAPXR PO SCH (09:00)
[2018-01-31] MEDS ORDERED: ASPIRIN 81 MG ECTAB PO SCH (09:00)
[2018-01-31] MEDS ORDERED: VENLAFAXINE HCL XR 150 MG CAPXR PO SCH (09:00)
[2018-01-31] MEDS ORDERED: GABAPENTIN 600 MG TAB PO SCH (09:00)
[2018-01-31] MEDS ORDERED: NURSING VERBAL MED ORDER ONE (09:15)
--- NOTE | 2018-01-31 09:58 | Hospitalist Progress Note ---
Hospitalist Progress Note Date of Service Jan 31, 2018. (Chaya Ladd ., LIZABETH) Subjective Ms. Cobos feels well this morning, sitting in a chair bedside. Her pain is well controlled however she has some numbness in her forefinger and thumb. She has normal strength and mobility in her right hand. ROS Constitutional: no chills, aches, sweats or fever Respiratory: no sob,cough, sputum, or wheezing Cardiac: no chest pain, palpitations, edema, orthopnea or lightheadedness GI: no abdominal pain, nausea, vomiting, diarrhea or constipation : no dysuria or hesitancy Extremities: see HPI Skin: no rash All other systems reviewed and negative (Chaya Ladd .LIZABETH) Medications Medications (Trade) Dose Ordered Sig/Dora Route Start Time Stop Time Status Last Admin Dose Admin Povidone Iodine (Betadine Ophthalmic Prep Solution) 30 ml STK-MED ONCE .ROUTE 01/30/18 10:24 01/30/18 10:25 DC 01/30/18 12:54 30 ML Vancomycin HCl (Vancomycin Iv) 50 mg STK-MED ONCE .ROUTE 01/30/18 10:24 01/30/18 10:25 DC 01/30/18 11:20 50 MG Bacitracin (Bacitracin Inj) 50,000 units STK-MED ONCE .ROUTE 01/30/18 10:24 01/30/18 10:25 DC 01/30/18 12:53 50,000 UNITS Alprazolam (Xanax Tab) 1 mg HS PO 01/30/18 21:00 03/01/18 20:59 01/30/18 20:58 1 MG Gabapentin (Neurontin Cap) 300 mg HS PO 01/30/18 21:00 03/01/18 20:59 01/30/18 20:58 300 MG Gabapentin (Neurontin Tab) 600 mg QAM PO 01/31/18 09:00 03/02/18 08:59 01/31/18 08:49 600 MG Levothyroxine Sodium (Synthroid Tab) 25 mcg DAILYBB PO 01/31/18 06:00 03/02/18 05:59 01/31/18 05:10 25 MCG Venlafaxine HCl (effeXOR EXTENDED REL CAP) 37.5 mg QAM PO 01/31/18 09:00 03/02/18 08:59 01/31/18 08:50 37.5 MG Venlafaxine HCl (effeXOR EXTENDED REL CAP) 150 mg QAM PO 01/31/18 09:00 03/02/18 08:59 01/31/18 08:50 150 MG Potassium Chloride 10 meq/ Sodium Chloride 1,005 ml @ 100 mls/hr Q10H3M IV 01/30/18 15:00 01/31/18 09:20 DC 01/31/18 02:15 100 MLS/HR Oxycodone HCl (Roxicodone Immediate Rel Tab) `1-2 TABS FOR PAIN `1 TAB... Q4H PRN PO 01/30/18 13:30 02/13/18 13:29 01/31/18 05:09 10 MG Acetaminophen (Tylenol Tab) 1,000 mg Q8 PO 01/30/18 14:00 03/01/18 13:59 01/31/18 05:10 1,000 MG Docusate Sodium (coLACE CAP) 100 mg BID PO 01/30/18 21:00 03/01/18 20:59 01/31/18 08:50 100 MG Multivitamins (Multivitamin Tab) 1 tab DAILY PO 01/31/18 09:00 03/02/18 08:59 01/31/18 08:50 1 TAB Ferrous Gluconate (Ferrous Gluconate Tab) 324 mg TIDM PO 01/30/18 17:45 03/01/18 17:59 01/31/18 08:50 324 MG Insulin Glargine (Lantus Per Unit) 40 units NOW ONCE SQ 01/30/18 14:30 01/30/18 14:31 DC 01/30/18 14:51 40 UNITS Insulin Aspart (novoLOG ASPART) SLIDING SCALE G... ACHS SC 01/30/18 14:30 03/01/18 14:29 01/31/18 08:56 18 UNITS Insulin Aspart (novoLOG ASPART) SLIDING SCALE G... TODAY@0000,0400 MA 01/31/18 00:00 01/31/18 04:01 DC 01/31/18 04:28 2 UNITS Cefazolin Sodium 2000 mg/Syringe 15 ml @ 3.75 mls/ min Q8H IV 01/30/18 18:00 01/31/18 02:03 DC 01/31/18 02:14 3.75 MLS/MIN Aspirin (Ecotrin Tab) 81 mg QAM PO 01/31/18 09:00 03/02/18 08:59 01/31/18 08:50 81 MG Menthol (Nice Sharon) 24 sharon STK-MED ONCE SHARON 01/30/18 17:57 01/30/18 17:58 DC 01/30/18 17:59 24 SHARON Insulin Glargine (Lantus Per Unit) 20 units TODAY@2200 ONCE SQ 01/30/18 22:00 01/30/18 22:01 DC 01/30/18 22:00 20 UNITS Insulin Glargine (Lantus Per Unit) 20 units TODAY@0830 ONCE SQ 01/31/18 08:30 01/31/18 08:31 DC 01/31/18 08:56 20 UNITS (Chaya Ladd CRNP) Objective Vital Signs Date Time Temp Pulse Resp B/P (MAP) Pulse Ox O2 Delivery O2 Flow Rate FiO2 01/31/18 03:30 80 99/66 (77) 01/31/18 03:15 37.0 84 16 88/54 (65) 92 Room Air 01/30/18 23:25 Room Air 01/30/18 22:57 37.0 96 18 105/55 (72) 92 Room Air 01/30/18 19:11 36.7 68 18 111/64 (80) 92 Room Air 01/30/18 17:50 36.7 73 18 139/78 (98) 94 Room Air 01/30/18 16:24 36.6 87 18 114/72 (86) 95 Room Air 01/30/18 15:26 36.3 61 18 97/66 (76) 96 Nasal Cannula 2.0 01/30/18 14:55 36.4 67 18 109/71 (84) 92 Nasal Cannula 2.0 01/30/18 14:25 36.6 77 16 122/76 (91) 95 Nasal Cannula 2.0 01/30/18 14:25 95 Nasal Cannula 2.0 01/30/18 14:25 95 Nasal Cannula 2.0 01/30/18 14:10 36.4 72 17 121/91 94 Nasal Cannula 2 01/30/18 14:00 78 19 128/67 94 Nasal Cannula 2 01/30/18 13:50 82 19 174/82 93 Nasal Cannula 2 01/30/18 13:40 77 24 134/58 93 Oxymask 10 01/30/18 13:30 73 16 144/87 95 Oxymask 10 01/30/18 13:20 36.3 89 16 175/97 95 Oxymask 10 01/30/18 09:01 36.9 60 16 142/71 93 Room Air (Chaya Ladd CRNP) Physical Exam Notes: General: no distress Eyes: normal inspection, PERLL Respiratory: chest non tender, clear to auscultation, normal breath sounds, no respiratory distress, no accessory muscle use Cardiac: regular rate and rhythm, no rub or gallop, systolic murmur, no edema, no jvd GI/: active bowel sounds, no abd pain or tenderness, soft, non distended Extremities: normal range of motion, normal strength, non tender, left shoulder dressing intact, hemovac draining blood Neuro/Psych: alert and oriented x 3, normal mood and affect Skin: normal color, (Chaya Ladd ., LIZABETH) Laboratory Results Last 24 Hours Test 01/30/18 09:03 01/30/18 13:58 01/30/18 14:48 01/30/18 16:27 Bedside Glucose 150 mg/dl 212 mg/dl 228 mg/dl 249 mg/dl Test 01/30/18 20:02 01/30/18 23:37 01/31/18 03:52 01/31/18 05:37 Bedside Glucose 290 mg/dl 237 mg/dl 170 mg/dl White Blood Count 13.25 K/uL Red Blood Count 3.81 M/uL Hemoglobin 12.1 g/dL Hematocrit 36.3 % Mean Corpuscular Volume 95.3 fL Mean Corpuscular Hemoglobin 31.8 pg Mean Corpuscular Hemoglobin Concent 33.3 g/dl RDW Standard Deviation 44.5 fL RDW Coefficient of Variation 12.8 % Platelet Count 175 K/uL Mean Platelet Volume 10.5 fL Sodium Level 133 mmol/L Potassium Level 4.4 mmol/L Chloride Level 100 mmol/L Carbon Dioxide Level 26 mmol/L Anion Gap 7.0 mmol/L Blood Urea Nitrogen 27 mg/dl Creatinine 1.54 mg/dl Est Creatinine Clear Calc Drug Dose 51.6 ml/min Estimated GFR () 40.9 Estimated GFR (Non- 35.3 BUN/Creatinine Ratio 17.5 Random Glucose 161 mg/dl Calcium Level 8.0 mg/dl Test 01/31/18 08:03 Bedside Glucose 148 mg/dl (Chaya Ladd CRNP) Assessment and Plan Ms. Cobos is a 62 year old woman here for right TSA S/p Right Reverse Total Shoulder Arthroplasty, Right Biceps Tenodesis 01/30 - Hgb 12.1 down from 14.9, monitor for acute hemorrhage - Bowel regimen, DVT prophylaxis, pain control, PT/OT per primary team DMII - glycemic consult placed by primary team - bsgs ac & hs, ss - hold home metformin and glimeperide until discharge HTN - continue atenolol - hold per parameters for low bp - hctz/losartan held by primary - would continue to hold for low blood pressures today and restart tomorrow CKDIII - patient's creat 1.42 on 01/12, marginal increase at 1.54 today - hctz/losartan held today - restart tomorrow morning if creatinine remains stable - prp am Hypothyroid - continue home levothyroxine Medicine will sign off for now. Please let us know if we can be of service in the future (Chaya Ladd, LIZABETH) LOCKSTITCH ZIPPER SETTER Physician Supervision Note: I discussed with Chaya Ladd LOCKSTITCH ZIPPER SETTER and agree with findings and plan as documented in the note. Any exceptions or clarifications are listed here: None Documented By: Vahid Landon (Vahid Landon M.D.)
[2018-01-31 12:14] VITALS: BP 116/72; PULSE 72; TEMP 36.5; O2SAT 93
--- NOTE | 2018-01-31 21:55 | Discharge Summary ---
Orthopedic Discharge Summary Admission Date/Reason Jan 30, 2018 at 13:25 Right Shoulder Osteoarthritis. Discharge Date/Disposition Jan 31, 2018 Home Diagnosis Principal Diagnosis: Right Shoulder Osteoarthritis Secondary Diagnoses/Problems: -DMII -HTN -CKDIII -Hypothyroidism Procedure(s) Performed Right Reverse Total Shoulder Arthroplasty with biceps tenodesis Consultations [place]. Vahid [place] [facility] [place] Medication Reconciliation New Medications: Ondansetron Hcl (Zofran) 8 Mg Tab 8 MG PO Q8 PRN for Nausea, #20 TAB Oxycodone HCl (Oxycodone HCl) 5 Mg Tab 5-10 MG PO Q4H PRN for Pain, #40 TAB Changed Medications: Acetaminophen (Tylenol) 500 Mg Tab 1000 MG PO Q8 for 30 Days, #180 TAB (Changed from: BID) Continued Medications: Alprazolam (Xanax) 0.5 Mg Tab 1 MG PO HS, TAB Aspirin (Aspirin Ec) 81 Mg Tab 81 MG PO QAM Atenolol (Atenolol) 50 Mg Tab 50 MG PO QAM Calcium/Vitamin D (Os-Nicholas 500 Plus D) Tab 1 TAB PO QAM, TAB Cinnamon (Cinnamon) 500 Mg Cap 2000 MG PO QAM Cyanocobalamin (Vitamin B-12) 1,000 Mcg Sub 2000 MCG PO QAM Gabapentin (Neurontin) 300 Mg Cap 600 MG PO QAM, CAP Gabapentin (Neurontin) 300 Mg Cap 300 MG PO HS, CAP Glimepiride (Glimepiride) 4 Mg Tab 1 TAB PO QAM for 90 Days, #90 TAB 3 Refills Glucosamine Sulfate (Glucosamine) 1,000 Mg Tab 1000 MG PO HS, TAB Glucosamine Sulfate (Glucosamine) 1,000 Mg Tab 2000 MG PO QAM, TAB Hctz/Losartan (Hyzaar 25MG/100MG) 1 Ea Tab 1 TAB PO QAM, TAB Levothyroxine Sodium (Synthroid) 25 Mcg Tab 25 MCG PO QAM, TAB Loratadine (Claritin) 10 Mg Tab 10 MG PO HS PRN for Seasonal Allergies, TAB Metformin Hcl (Glucophage) 500 Mg Tab 500 MG PO BID, TAB Venlafaxine Hcl (Venlafaxine Hcl Er) 150 Mg Tab 150 MG PO QAM Venlafaxine Hcl (Venlafaxine Hcl Er) 37.5 Mg Tab 1 TAB PO QAM Vitamin B Cmplx/Vitc/Folic Ac (Nephrocaps) Cap 1 CAP PO QAM, CAP [Black Cohosh] () 1 TAB PO QAM [Hydrocodone/Apap] () 0.5 TAB PO PRN [Iron] () 65 MG PO QAM Admission Physical Exam As per Admitting History & Physical. Hospital Course Patient presented for same day admission following Right reverse total shoulder arthroplasty on 01/30/18. She tolerated procedure well. Post-operatively, her activity was progressed and well tolerated. Dr. Vahid Landon of medical service was consulted for medical management during admission. On POD1 her creatinine was mildly elevated compared to her baseline and hemoglobin was to 12.1. Please refer to daily progress notes and PT notes for complete details. After exam on 01/31/18, patient was felt to be stable for discharge home with outpatient physical therapy. Her Hemovac drain was removed prior to discharge. Patient will f/u in the office in about 2 weeks for further evaluation including x-rays and incision check, sooner if having any issues or concerns. Discharge Instructions Please refer to the electronic Patient Visit Report (Discharge Instructions) for additional information.
[2018-02-01] MEDS ORDERED: LOSARTAN/HCTZ 50-12.5 EA TAB PO SCH (09:00)
== END 2018-01-31 13:20 | disposition home or self-care (01) | DRG 483 ==
LOC: C.ACU 08:15 → C.3E 13:25 → ENRESERV 13:56
PROVIDERS: ADMIT Orthopaedic Surgery; ATTEND Orthopaedic Surgery
PROC: 0RRJ00Z Replacement of Right Shoulder Joint with Reverse Ball and Socket Synthetic Substitute, Open Approach (ICD-10-PCS; principal; 2018-01-30 11:00)
PROC: 0LQ30ZZ Repair Right Upper Arm Tendon, Open Approach (ICD-10-PCS; principal; 2018-01-30 11:00)
DX: M19.011 Primary osteoarthritis, right shoulder (principal); Z68.41 Body mass index [BMI] 40.0-44.9, adult; S46.211A Strain of muscle, fascia and tendon of other parts of biceps, right arm, initial encounter; E11.9 Type 2 diabetes mellitus without complications; E78.5 Hyperlipidemia, unspecified; I12.9 Hypertensive chronic kidney disease with stage 1 through stage 4 chronic kidney disease, or unspecified chronic kidney disease; N18.3 Chronic kidney disease, stage 3 (moderate); E03.9 Hypothyroidism, unspecified; F41.9 Anxiety disorder, unspecified; E66.9 Obesity, unspecified; Z79.899 Other long term (current) drug therapy; Z79.84 Long term (current) use of oral hypoglycemic drugs; Z79.82 Long term (current) use of aspirin; Z96.653 Presence of artificial knee joint, bilateral; Z95.2 Presence of prosthetic heart valve; Z91.048 Other nonmedicinal substance allergy status; X58.XXXA Exposure to other specified factors, initial encounter